=== PATIENT | female | born 1960 | race Two or more races ===

== ENCOUNTER 2018-03-10 12:46 | Outpatient (CLI) | payer OTHER | END 2018-03-10 13:00 | disposition home or self-care (01) | LOC: NUCLEAR 12:46 | DX: C73 Malignant neoplasm of thyroid gland (principal); E89.0 Postprocedural hypothyroidism | CPT/HCPCS: 78018; 78020; A9528 ==

== ENCOUNTER 2021-09-07 12:56 | Outpatient (CLI) | payer OTHER | END 2021-09-07 13:14 | disposition home or self-care (01) | LOC: NUCLEAR 12:56 | PROVIDERS: ATTEND Internal Medicine Sports Medicine | DX: C73 Malignant neoplasm of thyroid gland (principal); E89.0 Postprocedural hypothyroidism | CPT/HCPCS: 78018; 78020; A9528 ==